=== PATIENT | female | born 1975 | race Caucasian/White ===

== ENCOUNTER → 2019-02-21 | Outpatient (CLI) | payer OTHER ==
[2019-02-25 14:06] LABS: HPV 16 Negative (Negative); HPV 18 Negative (Negative); HPV OTHER HR TYPES Negative (Negative)
== END ==
LOC: LAB 10:53 → LAB SHORT 10:53
PROVIDERS: Obstetrics & Gynecology
DX: Z01.419 Encounter for gynecological examination (general) (routine) without abnormal findings (principal)
CPT/HCPCS: 87624; G0123

== ENCOUNTER 2021-05-11 11:45 | Day surgery (SDC) | payer OTHER ==
[~2021-05-11] VITALS: Ht 188 cm; Wt 80.6 kg
[~2021-05-11 11:45] MED LIST: 1/2 NS 250ml250 ML; ACYC800 PO; ALBU90OI INH; ALPR.5 PO; BUPR100 PO; BUTALBITAL-ASA1 EACH PO; CYCL10 PO; DIAZ5 PO; DIPH50 PO; FAMO20 PO; HYDCOR2.5C PR; MELO7.5 PO; METPRE4 PO; PROM25 PO; PSEUDOEPHEDRINE30 M1 PO; TRAZ50 PO; ZOLM5 PO; ZYRTEC10 M2 PO
[2021-05-11] MEDS ORDERED: CELE200 PO (12:47)
[2021-05-11] MEDS ORDERED: AZULFIDINE500 M1 PO (12:47)
--- NOTE | 2021-05-11 13:33 | NUR ---
05/11/21 1333 Moira Peguero History, Chart, Medications and Allergies reviewed before start of procedure. Patient confirms NPO status and agrees with scheduled surgery. 3-LEAD EKG REVIEWED WITH PHYSICIAN PRIOR TO START OF PROCEDURE. MONITOR INTACT WITH CONTINUOUS PULSE OXIMETRY AND INTERMITTENT BP. PATIENT DETERMINED TO BE ASA APPROPRIATE FOR PROPOFOL SEDATION PRIOR TO START OF PROCEDURE BY .
--- NOTE | 2021-05-11 14:30 | NUR ---
Discharge instructions reviewed with patient. Patient verbalizes understanding. Copy given to patient to take home. Patient States Post-Procedure ride home has been arranged. Discharged via wheelchair to private car for ride home. PT STABLE DENIES PAIN AND NAUSEA HAS STABLE GAIT DC HOME IS THE DIRECTOR EPIDEMIOLOGY
== END 2021-05-11 22:48 | disposition home or self-care (01) ==
LOC: ORSCMMR 11:45 → ORSCSDS 13:00 → ORD 13:00 → ORSCMMR 22:48
PROVIDERS: Surgery
PROC: 0DJD8ZZ Inspection of Lower Intestinal Tract, Via Natural or Artificial Opening Endoscopic (ICD-10-PCS; principal; 2021-05-11 13:00)
DX: K62.5 Hemorrhage of anus and rectum (principal); K64.5 Perianal venous thrombosis; K60.2 Anal fissure, unspecified; F41.8 Other specified anxiety disorders; J45.909 Unspecified asthma, uncomplicated; E66.9 Obesity, unspecified; Z68.33 Body mass index [BMI] 33.0-33.9, adult; Z87.891 Personal history of nicotine dependence; Z79.899 Other long term (current) drug therapy
CPT/HCPCS: J2704; J7120